=== PATIENT | male | born 1975 | race Caucasian/White ===

== ENCOUNTER 2023-07-04 21:02 | Emergency (ER) | payer MEDICAID ==
[~2023-07-04] VITALS: Ht 177.8 cm; Wt 80.2 kg
[~2023-07-04 21:02] MED LIST: TRAM50TA94
[2023-07-04 21:22] VITALS: O2SAT 99
[2023-07-04] MEDS ORDERED: BACITRACIN ZINC OINT UDPKT TOP ONE (21:30)
[2023-07-04] MEDS ORDERED: TETANUS, DIPHTHERIA, PERTUSSIS VAC/PF 0.5ML (>10YR OLD) IM ONE ×2 (21:30→23:23)
[2023-07-04] MEDS ORDERED: AMOXICILLIN/POTASSIUM CLAVULANATE 875/125MG TAB PO ONE (21:30)
[2023-07-04] MEDS ORDERED: KETOROLAC 30MG/ML VIAL IM ONE (21:30)
[2023-07-04] MEDS ORDERED: LIDOCAINE HCL/PF 1% 10 MG/ML 5ML VIAL INFIL ONE (21:30)
[2023-07-04 23:15] VITALS: BP 114/78
[2023-07-04] MEDS ORDERED: BACITRACIN ZINC OINT UDPKT TOP NR (23:15)
[2023-07-04] MEDS ORDERED: LIDOCAINE HCL/PF 1% 10 MG/ML 5ML VIAL INFIL NR (23:15)
[2023-07-04] MEDS ORDERED: KETOROLAC 30MG/ML VIAL IM NR (23:15)
[2023-07-04] MEDS ORDERED: AMOXICILLIN/POTASSIUM CLAVULANATE 875/125MG TAB PO NR (23:15)
[2023-07-05] MEDS ORDERED: AMOX1TAB16 MT (00:30)
[2023-07-05] MEDS ORDERED: NAPR-681 MT (00:31)
[2023-07-05] MEDS ORDERED: BO1 TP (00:31)
[2023-07-05 01:23] VITALS: PULSE 87; RESP 18; TEMP 98
== END 2023-07-05 01:26 | disposition home or self-care (01) ==
LOC: ER 22:00
DX: S51.832A Puncture wound without foreign body of left forearm, initial encounter (principal); W55.01XA Bitten by cat, initial encounter; Y93.89 Activity, other specified; Y92.89 Other specified places as the place of occurrence of the external cause; Y99.8 Other external cause status
CPT/HCPCS: 90715; 90471; 96372; 99284; J1885; J3490; Z7610